=== PATIENT | female | born 1965 | race Caucasian/White ===

== ENCOUNTER → 2017-09-08 | Outpatient (CLI) | payer OTHER ==
[~2017-09-08] MED LIST: ASPIR 8181 M1 PO; B COMPLETE1 EACH PO; CARDURA4 MG PO; CRESTOR10 MG PO; LEVAQUIN500 MG PO; MOTRIN800 MG PO; NAPROXEN375 MG PO; NECON1 EAC2 PO; NORCO 5/3251 TABLET PO; PROBIOTIC1 EAC1 PO; PYRIDIUM200 MG PO; WOMEN'S BIOMUL1 EACH PO; ZOFRAN ODT8 MG PO; ZYRTEC10 M2 PO; [UNRECOGNIZED DRUG - OTHER] PO
== END | disposition home or self-care (01) ==
LOC: NUC 11:00
DX: M19.071 Primary osteoarthritis, right ankle and foot (principal); M89.8X8 Other specified disorders of bone, other site; M25.552 Pain in left hip; M79.605 Pain in left leg; M53.3 Sacrococcygeal disorders, not elsewhere classified
CPT/HCPCS: 78306; A9503